=== PATIENT | female | born 1970 | race Caucasian/White ===

== ENCOUNTER 2016-09-29 14:54 | Emergency (ER) | payer BC ==
--- NOTE | 2016-09-29 15:16 | EDM.PDOC ---
ED HPI Trauma - General Chief Complaint: Upper Extremity Injury/Pain Stated Complaint: MIGHT HAVE BROKEN ELBOW Time Seen by Provider: 09/29/16 15:10 Source: Reports: Patient History Limitations: Reports: No limitations - History of Present Illness INITIAL COMMENTS - FREE TEXT/NARRATIVE: patient slipped and fell catching herself with her right arm extended out. she felt immediate pain. hx of fracture to that right elbow 2 years ago. tells me pain feels the same as when she broke it. ache at rest, she has some numbness shooting down her forearm. no other injuries or complaints. Occurred When: just prior to arrival Method of Injury: fall Severity: moderate Pain/Injury Location: Reports: upper extremity, right Consciousness: Reports: no loss of consciousness Associated Symptoms: Reports: no other symptoms Allergies/ADRs: Allergies No Known Allergies Allergy (Verified 09/29/16 15:07) Home Medications: Ambulatory Orders . [No Known Home Meds] 09/29/16 [Confirmed 09/29/16] Review of Systems - Review of Systems Review Of Systems: ROS reveals no pertinent complaints other than HPI. Trauma Exam - Physical Exam Exam: See Below Exam Limited By: No limitations General Appearance: Reports: alert, WD/WN, no apparent distress Head: Reports: atraumatic, normocephalic Extremities: Reports: bony-point tenderness (later aspect of right elbow), pain with movement (lateral aspec of right elbow), tenderness (lateral aspect of right elbow. ) Skin: Reports: Normal color, Warm/dry Course - Vital Signs Last Recorded V/S: Last Vital Signs Temp 36.6 C 09/29/16 15:09 Pulse 100 09/29/16 15:09 Resp 20 09/29/16 15:09 BP 166/94 H 09/29/16 15:11 Pulse Ox 100 09/29/16 15:09 - Orders/Labs/Meds Orders: Active Orders 24 hr Category Date Time Status Elbow Min 3V Rt [CR] Stat Exams 09/29/16 15:14 Taken Departure - Departure Time of Disposition: 16:20 Disposition: Home, Self-Care 01 Condition: good Clinical Impression: Contusion of elbow Referrals: PCP,Not In Area [Primary Care Provider] - Forms: ED Department Discharge Care Plan Goals: ibuprofen 600mg 3 times a day as needed wear arm sling as needed gwen ROM exercises ice or heat. - Problem List & Annotations (1) Contusion of elbow SNOMED Code(s): 06653634 Code(s): S50.00XA - CONTUSION OF UNSPECIFIED ELBOW, INITIAL ENCOUNTER Status: Acute Priority: Medium Current Visit: Yes - My Orders Last 24 Hours: My Active Orders 09/29/16 15:14 Elbow Min 3V Rt [CR] Stat - Assessment/Plan Last 24 Hours: My Active Orders 09/29/16 15:14 Elbow Min 3V Rt [CR] Stat Plan: ibuprofen 600mg 3 times a day as needed wear arm sling as needed gwen ROM exercises ice or heat.
[2016-09-29] MEDS ORDERED: Ketorolac 60 MG/2 ML SDV IM ONE (15:55)
[2016-09-29 16:26] VITALS: BP 153/97
== END 2016-09-29 16:27 | disposition home or self-care (01) ==
LOC: VM.ED 14:54
DX: S50.00XA Contusion of unspecified elbow, initial encounter (principal); W19.XXXA Unspecified fall, initial encounter; Y93.89 Activity, other specified
CPT/HCPCS: 73080; 96372; 99283; J1885

== ENCOUNTER 2017-07-16 08:53 | Emergency (ER) | payer BC ==
--- NOTE | 2017-07-16 10:08 | EDM.PDOC ---
ED HPI GENERAL MEDICAL PROBLEM - General Chief Complaint: General Stated Complaint: EAR/MOUTH PAIN/SWELLING Time Seen by Provider: 07/16/17 09:20 Source of Information: Reports: Patient History Limitations: Reports: No Limitations - History of Present Illness INITIAL COMMENTS - FREE TEXT/NARRATIVE: Patient comes in this morning with complaints of chronic sinusitis and ear infections. She does state she's had a prior mastoidectomy which she states has actually worsened the condition. She complains of swelling to the right side of her face starting around the eye going down the cheek and into the chin. She states that this swelling started last night but it worsened overnight. She does state that she also has a pain level of 4-5. It does not cross over to the left side. She's not having any difficulties with breathing, eating, or drinking fluids. She currently is taking an antihistamine. She denies any fever , chills, night sweats, chest pain, headaches, vision disturbances, shortness of breath, problems with urination or bowel movements. She is currently on amoxicillin that was prescribed for her by her primary who is Olivia Oliver at [facility] in [place]. She has no additional complaints. Onset: Sudden Location: Reports: Face Severity: Mild Improves with: Reports: None Worsens with: Reports: None Associated Symptoms: Reports: No Other Symptoms - Related Data Allergies Allergy/AdvReac Type Severity Reaction Status Date / Time No Known Allergies Allergy Verified 09/29/16 15:07 Home Meds: Home Meds . [No Known Home Meds] 09/29/16 [History] Past Medical History Endocrine/Metabolic History: Reports: Diabetes, Type II, Hypothyroidism - Past Surgical History GI Surgical History: Reports: Cholecystectomy Social & Family History - Tobacco Use Smoking Status *Q: Never Smoker Second Hand Smoke Exposure: No - Recreational Drug Use Recreational Drug Use: No ED ROS GENERAL - Review of Systems Review Of Systems: ROS reveals no pertinent complaints other than HPI. ED EXAM, GENERAL - Physical Exam Exam: See Below Exam Limited By: No Limitations General Appearance: Alert, WD/WN, No Apparent Distress Eye Exam: Bilateral Eye: EOMI, PERRL Ears: Normal TMs, Hearing Loss (wears hearing aid to left side), Other (fluid behind TM, no drainage) Ear Exam: Right Ear: Swelling, TM Bulging (fluid present) Nose: Normal Inspection, Normal Mucosa, No Blood Throat/Mouth: Normal Inspection, Normal Lips, Normal Teeth, Normal Gums, Normal Oropharynx, Normal Voice, No Airway Compromise Head: Facial Swelling, Facial Tenderness (right sided tenderness and swelling to the frontal and nasal areas. Less so to the right mandible/chin) Neck: Lymphadenopathy (L), Lymphadenopathy (R) Respiratory/Chest: No Respiratory Distress, Lungs Clear, Normal Breath Sounds, No Accessory Muscle Use, Chest Non-Tender Cardiovascular: Normal Peripheral Pulses, Regular Rate, Rhythm, No Edema, No Gallop, No JVD, No Murmur, No Rub Peripheral Pulses: 2+: Posterior Tibial (L), Posterior Tibial (R), Dorsalis Pedis (L), Dorsalis Pedis (R) GI/Abdominal: Normal Bowel Sounds, Soft, Non-Tender, No Organomegaly, No Distention, No Abnormal Bruit, No Mass Extremities: Normal Inspection, Normal Range of Motion, Non-Tender, Normal Capillary Refill, No Pedal Edema Neurological: Alert, Oriented, CN II-XII Intact, Normal Cognition, Normal Gait, Normal Reflexes, No Motor/Sensory Deficits Psychiatric: Normal Affect, Normal Mood Skin Exam: Warm, Dry, Intact, Normal Color, No Rash Lymphatic: No Adenopathy Course - Orders/Labs/Meds Orders: Active Orders 24 hr Category Date Time Status Max Facial Sinus wo Cont [CT] Stat Exams 07/16/17 09:22 Ordered BASIC METABOLIC PANEL,BMP [CHEM] Stat Lab 07/16/17 09:54 Ordered C-REACTIVE PROTEIN [CHEM] Stat Lab 07/16/17 09:54 Ordered CBC WITH AUTO DIFF [HEME] Stat Lab 07/16/17 09:54 Ordered LACTIC ACID [CHEM] Stat Lab 07/16/17 09:54 Ordered - Re-Assessments/Exams Free Text/Narrative Re-Assessment/Exam: 07/16/17 12:13 Patient does have elevated white count, currently on amoxicillin. CT does not show concerning acute process, no orbital complaints on right side. No visual disturbances or complaints. Departure - Departure Time of Disposition: 11:16 Disposition: Home, Self-Care 01 Condition: Good Clinical Impression: Sinusitis chronic, sphenoidal, Otitis media - Discharge Information Instructions: Serous Otitis Media, Otitis Media With Effusion, Sinusitis, Adult , [id number] Forms: ED Department Discharge Additional Instructions: Stay well hydrated. Continue your medication as prescribed. Start your medrol dose pack today and finish the entire course. You do not have any abscess or bone interruption with infection. Follow up with your primary provider for additional symptom management. Please call us with any questions or concerns. - Problem List & Annotations (1) Sinusitis chronic, sphenoidal SNOMED Code(s): 09428588 Code(s): J32.3 - CHRONIC SPHENOIDAL SINUSITIS Status: Acute Priority: Low Current Visit: Yes - Problem List Review Problem List Initiated/Reviewed/Updated: Yes - My Orders Last 24 Hours: My Active Orders 07/16/17 09:22 Max Facial Sinus wo Cont [CT] Stat 07/16/17 09:54 BASIC METABOLIC PANEL,BMP [CHEM] Stat C-REACTIVE PROTEIN [CHEM] Stat CBC WITH AUTO DIFF [HEME] Stat LACTIC ACID [CHEM] Stat - Assessment/Plan Last 24 Hours: My Active Orders 07/16/17 09:22 Max Facial Sinus wo Cont [CT] Stat 07/16/17 09:54 BASIC METABOLIC PANEL,BMP [CHEM] Stat C-REACTIVE PROTEIN [CHEM] Stat CBC WITH AUTO DIFF [HEME] Stat LACTIC ACID [CHEM] Stat Assessment:: chronic sinusitis Otitis media Plan: Stay well hydrated. Continue your medication as prescribed. Start your medrol dose pack today and finish the entire course. You do not have any abscess or bone interruption with infection. Follow up with your primary provider for additional symptom management. Please call us with any questions or concerns.
[2017-07-16 10:29] LABS: CHLORIDE,CL 103 mmol/L (98-107); SODIUM,NA 138 mmol/L (136-145)
[2017-07-16 12:00] VITALS: BP 146/96
== END 2017-07-16 11:20 | disposition home or self-care (01) ==
LOC: VM.ED 08:53
DX: J32.3 Chronic sphenoidal sinusitis (principal); H66.93 Otitis media, unspecified, bilateral; E11.9 Type 2 diabetes mellitus without complications
CPT/HCPCS: 36415; 70486; 80048; 83605; 85025; 86140; 99284

== ENCOUNTER 2019-03-27 15:27 | Emergency (ER) | payer BC ==
[2019-03-27] MEDS ORDERED: Sodium Chloride 0.9% 10 ML Syringe FLUSH PRN (15:58)
--- NOTE | 2019-03-27 16:18 | EDM.PDOC ---
ED HPI GENERAL MEDICAL PROBLEM - General Chief Complaint: Cardiovascular Problem Stated Complaint: HEART MONITOR ALERT Time Seen by Provider: 03/27/19 15:56 Source of Information: Reports: Patient History Limitations: Reports: No Limitations - History of Present Illness INITIAL COMMENTS - FREE TEXT/NARRATIVE: Pt noted flutter in her chest this am around 0900 has a heart monitor was call by her pcp office at 1330 and told to go to the er due to the event monitor. Was in SVT at 180 at 0825 this am had chest pressure and shortness of breath at this time pt is symptom free. Location: Reports: Chest Quality: Reports: Pressure - Related Data Allergies Allergy/AdvReac Type Severity Reaction Status Date / Time No Known Allergies Allergy Verified 03/27/19 16:08 Home Meds: Home Meds atorvaSTATin [Lipitor] 20 mg PO BEDTIME 07/16/17 [History] metFORMIN [Glucophage XR] 500 mg PO ASDIRECTED 07/16/17 [History] Empagliflozin [Jardiance] 25 mg PO DAILY 03/27/19 [History] Levothyroxine 112 mcg PO ACBREAKFAST 03/27/19 [History] Semaglutide [Ozempic] 0.25 mg SQ ASDIRECTED 03/27/19 [History] Past Medical History Endocrine/Metabolic History: Reports: Diabetes, Type II, Hypothyroidism - Past Surgical History GI Surgical History: Reports: Cholecystectomy ED ROS GENERAL - Review of Systems Review Of Systems: See Below Constitutional: Reports: No Symptoms HEENT: Reports: No Symptoms Respiratory: Reports: No Symptoms Cardiovascular: Reports: No Symptoms Endocrine: Reports: No Symptoms GI/Abdominal: Reports: No Symptoms : Reports: No Symptoms Musculoskeletal: Reports: No Symptoms Skin: Reports: No Symptoms Neurological: Reports: No Symptoms Psychiatric: Reports: No Symptoms Free Text/Narrative/Comment: Pt is symptom free at this time. ED EXAM, GENERAL - Physical Exam Exam: See Below Free Text/Narrative:: Pt with no symptoms at this time. SR at 90, labs wnl pulse @+ skin pink warm dry , no shortness of breath. Pt monitored in er with no changes. Exam Limited By: No Limitations General Appearance: Alert, WD/WN, No Apparent Distress Eye Exam: Bilateral Eye: PERRL Ears: Normal External Exam Nose: Normal Inspection Throat/Mouth: Normal Inspection Head: Atraumatic, Normocephalic Neck: Normal Inspection, Supple, Non-Tender, Full Range of Motion Respiratory/Chest: No Respiratory Distress, Lungs Clear, Normal Breath Sounds, No Accessory Muscle Use, Chest Non-Tender Cardiovascular: Normal Peripheral Pulses, Regular Rate, Rhythm, No Edema, No Gallop, No JVD, No Murmur, No Rub GI/Abdominal: Normal Bowel Sounds (Female) Exam: Normal External Exam, Normal Speculum Exam Rectal (Female) Exam: Normal Exam, Normal Rectal Tone Back Exam: Normal Inspection, Full Range of Motion Extremities: Normal Inspection, Normal Range of Motion, Normal Capillary Refill Neurological: Alert, Oriented Psychiatric: Normal Affect, Normal Mood Skin Exam: Warm, Dry, Intact, Normal Color Course - Vital Signs Last Recorded V/S: Last Vital Signs Temp 36.1 C 03/27/19 15:30 Pulse 89 03/27/19 15:30 Resp 16 03/27/19 15:30 BP 147/71 H 03/27/19 15:30 Pulse Ox 98 03/27/19 15:30 - Orders/Labs/Meds Orders: Active Orders 24 hr Category Date Time Status EKG 12 Lead [EKG Documentation Completion] [RC] STAT Care 03/27/19 15:59 Active Sodium Chloride 0.9% [Saline Flush] Med 03/27/19 15:58 Active 10 ml FLUSH ASDIRECTED PRN Peripheral IV Insertion Adult [OM.PC] Routine Oth 03/27/19 15:58 Ordered Medication Orders Sodium Chloride (Saline Flush) 10 ml FLUSH ASDIRECTED PRN PRN Reason: Keep Vein Open Labs: Laboratory Tests 03/27/19 03/27/19 Range/Units 16:11 16:11 WBC 8.3 (4.0-10.0) x10^3/uL RBC 5.13 (4.00-5.50) x10^6/uL Hgb 14.9 (12.0-16.0) g/dL Hct 43.9 (33.0-47.0) % MCV 85.6 (78.0-93.0) fL MCH 29.0 (26.0-32.0) pg MCHC 33.9 (32.0-36.0) g/dL RDW Coeff of Vivien 12.8 (10.0-15.0) % Plt Count 258 D (130-400) x10^3/uL Neut % (Auto) 61.4 (50.0-80.0) % Lymph % (Auto) 33.0 (25.0-50.0) % [place] % (Auto) 4.4 (2.0-11.0) % Eos % (Auto) 1.0 (0.0-4.0) % Baso % (Auto) 0.2 (0.2-1.2) % Sodium 141 (136-145) mmol/L Potassium 4.0 (3.5-5.1) mmol/L Chloride 102 (98-107) mmol/L Carbon Dioxide 26 (21-32) mmol/L Anion Gap 17.0 (10-20) mmol/L BUN 16 (7-18) mg/dL Creatinine 0.8 (0.55-1.02) mg/dL Est Cr Clr Drug Dosing TNP Estimated GFR (MDRD) > 60 Glucose 159 H (74-106) mg/dL Calcium 9.2 (8.5-10.1) mg/dL Troponin I 0.026 (<=0.056) ng/mL TSH, Ultra Sensitive 1.763 (0.358-3.74) uIU/mL Meds: Medications Generic Name Dose Route Start Last Admin Trade Name Freq PRN Reason Stop Dose Admin Sodium Chloride 10 ml 03/27/19 15:58 Saline Flush FLUSH ASDIRECTED PRN Keep Vein Open Departure - Departure Time of Disposition: 17:00 Disposition: Home, Self-Care 01 Clinical Impression: SVT (supraventricular tachycardia) Instructions: Supraventricular Tachycardia, Adult, [id number] Forms: ED Department Discharge Care Plan Goals: Continue use of heart monitor, follow up with pcp for continued care. - My Orders Last 24 Hours: My Active Orders 03/27/19 15:58 Sodium Chloride 0.9% [Saline Flush] 10 ml FLUSH ASDIRECTED PRN Peripheral IV Insertion Adult [OM.PC] Routine 03/27/19 15:59 EKG 12 Lead [EKG Documentation Completion] [RC] STAT - Assessment/Plan Last 24 Hours: My Active Orders 03/27/19 15:58 Sodium Chloride 0.9% [Saline Flush] 10 ml FLUSH ASDIRECTED PRN Peripheral IV Insertion Adult [OM.PC] Routine 03/27/19 15:59 EKG 12 Lead [EKG Documentation Completion] [RC] STAT
[2019-03-27 16:49] LABS: CHLORIDE,CL 102 mmol/L (98-107); SODIUM,NA 141 mmol/L (136-145)
[2019-03-27 17:10] VITALS: BP 145/88; PULSE 94
== END 2019-03-27 17:03 | disposition home or self-care (01) ==
LOC: VM.ED 15:27
DX: I47.1 Supraventricular tachycardia (principal); E11.9 Type 2 diabetes mellitus without complications; E03.9 Hypothyroidism, unspecified; Z79.84 Long term (current) use of oral hypoglycemic drugs; Z79.899 Other long term (current) drug therapy; Z90.49 Acquired absence of other specified parts of digestive tract
CPT/HCPCS: 36415; 80048; 84443; 84484; 85025; 93005; 99285-25

== ENCOUNTER 2020-05-23 11:18 | Emergency (ER) | payer BC, MEDICAID ==
[2020-05-23 12:33] LABS: ANION GAP 10.6 mmol/L (10-20); CHLORIDE,CL 103 mmol/L (98-107); SODIUM,NA 139 mmol/L (136-145)
--- NOTE | 2020-05-23 12:36 | CR ---
[id number] RAD/RAD Chest PA or AP 1V EXAM: SINGLE VIEW CHEST. INDICATION: COUGH VIRAL INFECTION COMPARISON: NO PREVIOUS SIMILAR EXAM IS AVAILABLE FINDINGS: Early bilateral infiltrates are seen The cardiomediastinal contour is moderately enlarged There appears to be right hilar adenopathy or a right hilar mass IMPRESSION: BILATERAL PNEUMONIA CONSIDER FOLLOW-UP CT Edison Lua MD 05/23/20 [id number] Thank you for allowing us to participate in the care of your patient.
[2020-05-23] MEDS ORDERED: cefTRIAXone 2 GM, Lidocaine 1% 4.2 ML IM ONE ×2 (12:39)
--- NOTE | 2020-05-23 13:13 | EDM.PDOC ---
ED HPI GENERAL MEDICAL PROBLEM - General Chief Complaint: Respiratory Problem Stated Complaint: CHEST PAIN COVID + Time Seen by Provider: 05/23/20 11:18 Source of Information: Reports: Patient History Limitations: Reports: No Limitations - History of Present Illness INITIAL COMMENTS - FREE TEXT/NARRATIVE: Pt. presents to ER with complaints of cough, chest congestion, chest tightness, and LEON. Pt. states that she was diagnosed with covid 19 on 05/13 and states that she is still having symptoms which is concerning. She states that the cough is actually worse and more productive. No nausea, vomiting, or diarrhea. Denies any pain in her jaw, arms, neck or back. She states that she has not been chilled recently. Complains of body aches and extreme fatigue, especially after walking/being active. She states that she has been trying to eat and drink plenty. She was seen on a telehealth meeting yesterday. She states that they were going to start her on albuterol and tessalon for her cough, but her pharmacy did not get these medication. Onset Date: 05/13/20 Location: Reports: Chest, Generalized Improves with: Reports: Rest Worsens with: Reports: Movement Associated Symptoms: Reports: Cough, Shortness of Breath - Related Data Allergies Allergy/AdvReac Type Severity Reaction Status Date / Time No Known Allergies Allergy Verified 05/23/20 12:55 Home Meds: Home Meds atorvaSTATin [Lipitor] 20 mg PO Q7D 07/16/17 [History] metFORMIN [Glucophage XR] 500 mg PO ASDIRECTED 07/16/17 [History] Empagliflozin [Jardiance] 25 mg PO DAILY 03/27/19 [History] Levothyroxine 112 mcg PO ACBREAKFAST 03/27/19 [History] Semaglutide [Ozempic] 0.25 mg SQ ASDIRECTED 03/27/19 [History] Past Medical History Cardiovascular History: Reports: Arrhythmia Endocrine/Metabolic History: Reports: Diabetes, Type II, Hypothyroidism - Past Surgical History GI Surgical History: Reports: Cholecystectomy ED ROS GENERAL - Review of Systems Review Of Systems: See Below Constitutional: Reports: Malaise, Weakness, Fatigue HEENT: Reports: No Symptoms Respiratory: Reports: Shortness of Breath, Wheezing, Cough, Sputum Cardiovascular: Reports: No Symptoms Endocrine: Reports: No Symptoms GI/Abdominal: Reports: No Symptoms : Reports: No Symptoms Musculoskeletal: Reports: No Symptoms Skin: Reports: No Symptoms Neurological: Reports: No Symptoms Psychiatric: Reports: No Symptoms Hematologic/Lymphatic: Reports: No Symptoms Immunologic: Reports: No Symptoms ED EXAM, GENERAL - Physical Exam Exam: See Below Exam Limited By: No Limitations General Appearance: Alert, WD/WN, Mild Distress Nose: Normal Inspection, No Blood Head: Atraumatic, Normocephalic Neck: Normal Inspection, Non-Tender, Carotid Bruit Respiratory/Chest: Decreased Breath Sounds, Crackles. No: Respiratory Distress Cardiovascular: Normal Peripheral Pulses, Regular Rate, Rhythm, No Edema, No JV D, No Murmur Peripheral Pulses: 4+: Radial (L) GI/Abdominal: Soft, Non-Tender, No Distention, No Mass (Female) Exam: Deferred Rectal (Female) Exam: Deferred Extremities: Normal Inspection, Normal Range of Motion, Non-Tender, No Pedal Edema, Normal Capillary Refill Neurological: Alert, Oriented, CN II-XII Intact, Normal Cognition, Normal Gait, Normal Reflexes, No Motor/Sensory Deficits Psychiatric: Normal Affect, Normal Mood Skin Exam: Warm, Dry, Intact, Normal Color, No Rash Lymphatic: No Adenopathy #1 Interpretation Rhythm: NSR [place]: Normal P-Wave: Present QRS: Normal ST-T: Normal QT: Normal Course - Orders/Labs/Meds Orders: Active Orders 24 hr Category Date Time Status INFLUENZA A+B AG SCREEN [RM] Stat Lab 05/23/20 11:49 Ordered Labs: Laboratory Tests 05/23/20 05/23/20 05/23/20 Range/Units 12:03 12:03 12:03 WBC 6.4 (4.0-10.0) x10^3/uL RBC 4.65 (4.00-5.50) x10^6/uL Hgb 13.4 D (12.0-16.0) g/dL Hct 39.7 (33.0-47.0) % MCV 85.4 (78.0-93.0) fL MCH 28.8 (26.0-32.0) pg MCHC 33.8 (32.0-36.0) g/dL RDW Coeff of Vivien 12.7 (10.0-15.0) % Plt Count 210 (130-400) x10^3/uL Neut % (Auto) 81.6 H (50.0-80.0) % Lymph % (Auto) 11.7 L (25.0-50.0) % [place] % (Auto) 6.3 (2.0-11.0) % Eos % (Auto) 0.2 (0.0-4.0) % Baso % (Auto) 0.2 (0.2-1.2) % PT 10.3 (9.5-12.3) SEC INR 0.9 L (2.0-3.5) Sodium 139 (136-145) mmol/L Potassium 3.6 (3.5-5.1) mmol/L Chloride 103 (98-107) mmol/L Carbon Dioxide 29 (21-32) mmol/L Anion Gap 10.6 (10-20) mmol/L BUN 10 (7-18) mg/dL Creatinine 0.8 (0.55-1.02) mg/dL Est Cr Clr Drug Dosing TNP Estimated GFR (MDRD) > 60 Glucose 137 H (74-106) mg/dL Calcium 8.4 L (8.5-10.1) mg/dL Corrected Calcium 9.68 (8.5-10.1) mg/dL Magnesium 1.7 L (1.8-2.4) mg/dL Total Bilirubin 0.7 (0.2-1.0) mg/dL AST 36 (15-37) U/L ALT 33 (14-59) U/L Alkaline Phosphatase 95 (46-116) U/L Troponin I < 0.017 (<=0.056) ng/mL C-Reactive Protein 11.7 H (<=0.9) mg/dL Total Protein 7.3 (6.4-8.2) g/dL Albumin 2.4 L (3.4-5.0) g/dL Globulin 4.9 Albumin/Globulin Ratio 0.49 Meds: Medications Discontinued Medications Generic Name Dose Route Start Last Admin Trade Name Freq PRN Reason Stop Dose Admin Ceftriaxone Sodium 2 gm/ 0 gm 05/23/20 12:39 05/23/20 12:48 Lidocaine HCl 4.2 ml IM 05/23/20 12:40 2 inj ONETIME ONE Administration - Radiology Interpretation Free Text/Narrative:: bilateral infiltrates noted on chest x-ray Departure - Departure Time of Disposition: 13:00 Disposition: Home, Self-Care 01 Clinical Impression: CAP (community acquired pneumonia) - Discharge Information Instructions: COVID-19, Albuterol inhalation aerosol, Doxycycline tablets or capsules, Prednisone tablets, Codeine; Promethazine oral solution, Community- Acquired Pneumonia, Adult, [id number] Referrals: Suly Jarvis DO [Primary Care Provider] - Forms: ED Department Discharge Additional Instructions: Doxycycline 100mg 1 twice daily for 10 days Prednisone 20mg 2 tabs every day for 6 days Phenergan with codeine cough medicine 5 ml every 4-6hr as needed for cough Albuterol inhaler 2 puffs every 4-6 hours as needed for cough/shortness of breath Follow-up in clinic in 10-14 days, sooner if not gradually improving. Drink lots of water. Return to ER if you become more short of breath/can't catch your breath at rest. - Problem List Review Problem List Initiated/Reviewed/Updated: Yes - My Orders Last 24 Hours: My Active Orders 05/23/20 11:49 INFLUENZA A+B AG SCREEN [RM] Stat - Assessment/Plan Last 24 Hours: My Active Orders 05/23/20 11:49 INFLUENZA A+B AG SCREEN [RM] Stat Plan: Doxycycline 100mg 1 twice daily for 10 days Prednisone 20mg 2 tabs every day for 6 days Phenergan with codeine cough medicine 5 ml every 4-6hr as needed for cough Albuterol inhaler 2 puffs every 4-6 hours as needed for cough/shortness of breath Follow-up in clinic in 10-14 days, sooner if not gradually improving. Drink lots of water. Return to ER if you become more short of breath/can't catch your breath at rest.
[2020-05-23 13:34] VITALS: BP 130/68; PULSE 89
== END 2020-05-23 13:05 | disposition home or self-care (01) ==
LOC: VM.ED 11:18
DX: J18.9 Pneumonia, unspecified organism (principal); E11.9 Type 2 diabetes mellitus without complications; E03.9 Hypothyroidism, unspecified; Z79.899 Other long term (current) drug therapy; Z79.84 Long term (current) use of oral hypoglycemic drugs
CPT/HCPCS: 36415; 71045; 80053; 83735; 84484; 85025; 85610; 86140; 93010; 96372; 99284; 99285-25; J0696; J2001